=== PATIENT | female | born 1955 | race Caucasian/White ===

== ENCOUNTER 2018-01-15 05:51 | Day surgery (SDC) | payer BC ==
[2018-01-15] MEDS ORDERED: Ketamine HCl 50 MG/ML IJ ONE (05:52)
[2018-01-15] MEDS ORDERED: DIPRIVAN 200 MG/20 ML IV ONE (05:52)
[2018-01-15] MEDS ORDERED: Lactated Ringers 1,000 ML IV SCH (06:30)
[2018-01-15 08:28] VITALS: O2SAT 95
--- NOTE | 2018-01-15 08:49 | OP ---
SURGERY DATE/TIME: 01/15/2018711 PREOPERATIVE DIAGNOSIS: Persistent gastroesophageal reflux disease. POSTOPERATIVE DIAGNOSIS: Normal exam. PROCEDURE: EGD. SURGEON: Gil Vasquez M.D. ANESTHESIA: MAC by Saul Montiel CRNA. ESTIMATED BLOOD LOSS: None. SPECIMENS: None. DESCRIPTION OF PROCEDURE: After informed written consent was obtained, the patient was taken to the endoscopy suite. The patient underwent monitored anesthesia after a bite block was inserted. The endoscope was inserted into the posterior oropharynx and under direct visualization the esophagus was easily traversed. There were no obvious mucosal abnormalities upon entering the stomach. Gastric mucosa had a normal rugated appearance free of lesions or defects. Pylorus was inspected and noted to be within normal limits. Pylorus was traversed and the first and second portions of the duodenum likewise were within normal limits. There were no obvious ulcerations or abnormalities. Upon withdrawal mucosal structures were all carefully inspected and noted to be within normal limits. The scope was removed and the patient was transferred to the recovery room in good condition.
[2018-01-15 09:02] VITALS: BP 146/84; PULSE 70
== END 2018-01-15 09:05 | disposition home or self-care (01) ==
LOC: SDC 05:51
PROVIDERS: ATTEND Family Medicine
DX: K21.9 Gastro-esophageal reflux disease without esophagitis (principal)
CPT/HCPCS: 94250; J2704

== ENCOUNTER 2021-04-05 06:08 | Day surgery (SDC) | payer BC ==
[2021-04-05] MEDS ORDERED: Lactated Ringers 1,000 ML IV ONE (06:45)
[2021-04-05] MEDS ORDERED: Lactated Ringers 1,000 ML IV SCH (07:00)
[2021-04-05] MEDS ORDERED: DIPRIVAN 200 MG/20 ML IV ONE ×2 (08:00→08:07)
[2021-04-05 09:40] VITALS: BP 157/94; PULSE 78; O2SAT 98
--- NOTE | 2021-04-06 08:51 | OP ---
SURGERY DATE/TIME: 04/05/2021 0759 PREOPERATIVE DIAGNOSIS: Bowel incontinence. POSTOPERATIVE DIAGNOSIS: Normal colon. PROCEDURE: Diagnostic colonoscopy. SURGEON: Gil Vasquez M.D. ANESTHESIA: MAC by Sunil Reid CRNA. ESTIMATED BLOOD LOSS: None. SPECIMENS: None. DESCRIPTION OF PROCEDURE: After informed written consent was obtained, the patient was taken to the endoscopy suite. She was placed in left lateral decubitus position and anesthesia was titrated to desired level of consciousness. Digital rectal exam showed normal sphincter tone and no internal lesions. The scope was inserted into the rectum and sequentially the entire colonic mucosa was traversed. The level of cecum was reached and verified with direct visualization of the ileocecal valve. Upon withdrawal careful mucosal inspection revealed no abnormalities. Prep was noted to be good. There were no mucosal abnormalities or areas of concern throughout the entire length of the colon. Prior to withdrawal retroflexion showed no internal lesions. The scope was removed. The patient was transferred to the recovery room in good condition.
== END 2021-04-05 09:20 | disposition home or self-care (01) ==
LOC: SDC 06:08
PROVIDERS: ATTEND Family Medicine
DX: R15.9 Full incontinence of feces (principal)
CPT/HCPCS: J2704